=== PATIENT | female | born 1995 | race Caucasian/White ===

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

== ENCOUNTER 2024-06-05 06:19 | Inpatient (IN) ==
[2024-06-05] MEDS: D5 1/2 NS 1,000 ML 1,000 ML IV SCH ×2 (06:37→09:38)
[2024-06-05] MEDS: LR 1,000 ML IV 1,000 ML IV ONE (06:45)
[2024-06-05] MEDS: NOZIN NASAL SANITIZER TP ONE (06:45)
[2024-06-05 07:03] VITALS: BMI 26.7
[2024-06-05] MEDS: NS 100 ML IV 100 ML ONE (07:06)
[2024-06-05] MEDS: ANCEF VIAL 1 GRAM IVP ONE (07:06)
[2024-06-05] MEDS: DIPRIVAN VIAL 20 ML ONE (07:08)
[2024-06-05] MEDS: OFIRMEV IV 1000 MG VIAL 1,000 MG/100 ML VIAL IV ONE (07:08)
[2024-06-05] MEDS: PRECEDEX INJ VIAL ONE (07:08)
[2024-06-05] MEDS: XYLOCAINE 2 % (PLAIN) ONE (07:08)
[2024-06-05] MEDS: BRIDION ONE (07:08)
[2024-06-05] MEDS: VERSED ONE (07:12)
[2024-06-05] MEDS: DECADRON INJ ONE (07:12)
[2024-06-05] MEDS: FENTANYL VIAL INJ 100 mcg ONE (07:12)
[2024-06-05] MEDS: ZEMURON 100 MG VIAL ONE (07:12)
[2024-06-05] MEDS: LR 1,000 ML IV 700 ML IV PRN (07:15)
[2024-06-05] MEDS: PEPCID 20 MG VIAL IVP PRN (07:16)
[2024-06-05] MEDS: REGLAN INJ 10 MG VIAL IVP PRN (07:16)
[2024-06-05] MEDS: ZOFRAN INJ 4 MG VIAL IVP PRN ×2 (07:16→10:04)
[2024-06-05] MEDS: VERSED IVP PRN (07:16)
[2024-06-05] MEDS ORDERED: KETAMINE HCL ONE (07:18)
[2024-06-05] MEDS ORDERED: ULTANE GAS IN ONE (07:18)
[2024-06-05] MEDS: ANCEF VIAL 1 GRAM IV PRN (07:18)
[2024-06-05] MEDS ORDERED: XYLOCAINE 2 % (PLAIN) PRN (07:24)
[2024-06-05] MEDS: ZEMURON 100 MG VIAL IVP PRN (07:24)
[2024-06-05] MEDS: FENTANYL VIAL INJ 100 mcg IVP PRN (07:24)
[2024-06-05] MEDS: DECADRON INJ IVP PRN (07:29)
[2024-06-05] MEDS: OFIRMEV IV 1000 MG VIAL 1,000 MG/100 ML VIAL IV PRN (07:35)
[2024-06-05] MEDS: DILAUDID INJ ONE (07:49)
[2024-06-05] MEDS ORDERED: REGLAN INJ 10 MG VIAL IVP PRN (07:57)
[2024-06-05] MEDS ORDERED: BARHEMSYS INJ IVP PRN (07:57)
[2024-06-05] MEDS ORDERED: ZOFRAN INJ 4 MG VIAL IVP PRN ×2 (07:57→13:38)
[2024-06-05] MEDS ORDERED: DILAUDID INJ IVP PRN (07:57)
[2024-06-05] MEDS ORDERED: BENADRYL INJ 50 MG VIAL IVP PRN ×2 (07:57→09:08)
[2024-06-05] MEDS: DILAUDID INJ IVP PRN (08:10)
[2024-06-05] MEDS: PRECEDEX INJ VIAL IVP PRN (08:24)
[2024-06-05] MEDS: BRIDION IVP PRN (08:26)
[2024-06-05] MEDS: DIPRIVAN VIAL 200 ML IVP PRN (08:27)
[2024-06-05] MEDS: BREVIBLOC IVP PRN (08:28)
[2024-06-05] MEDS: KETAMINE HCL IV PRN (08:29)
[2024-06-05] MEDS ORDERED: LUBIFRESH PM EYE OINTMENT PRN (08:31)
[2024-06-05] MEDS ORDERED: TAPAZOLE ONE (09:25)
[2024-06-05] MEDS: INDERAL TAB 10 MG PO SCH ×2 (09:29→21:00)
[2024-06-05] MEDS: TAPAZOLE PO SCH (09:30)
[2024-06-05] MEDS: PERCOCET TAB 5/325 MG PO PRN ×2 (09:30→13:43)
[2024-06-05] MEDS: TORADOL 30 MG VIAL IVP PRN ×2 (10:53→16:32)
[2024-06-05] MEDS: MORPHINE SULFATE INJ 2 MG INJ IVP ONE (11:41)
[2024-06-05] MEDS: COLACE CAP 100 MG PO SCH (20:59)
[2024-06-05] MEDS: AMBIEN PO PRN (21:39)
[2024-06-05] MEDS: BACTROBAN TOPICAL OINT TOP SCH (21:39)
[2024-06-06 05:30] LABS: BASOPHILS % (AUTO) 0.2 % (0.2-1.0); HEMOGLOBIN 12.6 g/dL (12.0-16.0); LYMPHOCYTES # (AUTO) 2.5 X10^3/uL (1.3-2.9); LYMPHOCYTES % (AUTO) 18.4 % (21.0-51.0); MEAN CORPUSCULAR HEMOGLOBIN 27.1 pg (27.0-34.0); MEAN CORPUSCULAR HGB CONC 35.1 g/dL (33.0-35.0); MEAN CORPUSCULAR VOLUME 77.1 fL (80.0-100.0); MEAN PLATELET VOLUME 8.3 fL (7.4-11.0); MONOCYTES % (AUTO) 7.4 % (0.0-13.0); NEUTROPHILS # (AUTO) 10.3 x10^3/uL (2.2-4.8); PLATELET COUNT 279 X10^3/uL (150.0-450.0); RED BLOOD COUNT 4.67 X10^6/uL (3.5-5.4); RED CELL DISTRIBUTION WIDTH 12.3 % (11.6-16.5); WHITE BLOOD COUNT 13.9 X10^3/uL (3.6-10.0)
[2024-06-06 05:35] LABS: BLOOD UREA NITROGEN 10 mg/dL (7-18); CARBON DIOXIDE 25.9 mmol/L (21-32); CHLORIDE 104 mmol/L (98-107); COR NA(FOR HYPERGLY) 139 mmol/L (136-145); CREATININE 0.35 mg/dL (0.55-1.02); GLUCOSE 112 mg/dL (65-99); POTASSIUM 3.6 mmol/L (3.5-5.1); SODIUM 139 mmol/L (136-145); eGFR NON BLACK RACES > 60 (>60)
[2024-06-06] MEDS ORDERED: CONSULT PHARMACY - POTASSIUM & MAGNESIUM XX SCH (07:00)
[2024-06-06] MEDS: K-DUR TAB 20 MEQ PO SCH (07:31)
[2024-06-06] MEDS ORDERED: TAPAZOLE ONE (08:08)
[2024-06-06] MEDS: TAPAZOLE PO SCH (08:18)
[2024-06-06 08:20] VITALS: RESP 16
[2024-06-06 08:45] VITALS: BP 136/74; PULSE 89; TEMP 97.7; O2SAT 98
== END 2024-06-06 09:20 | disposition home or self-care (01) | DRG 742 ==
LOC: SURG1 06:19 → MED/SURG 06:44
PROVIDERS: ADMIT Specialist; ATTEND Specialist
PROC: ECTOPOP (2024-06-05 07:45)
DX: R10.32 Left lower quadrant pain; R10.2 Pelvic and perineal pain; Z59.12 Inadequate housing utilities; N83.292 Other ovarian cyst, left side